=== PATIENT | male | born 1955 | race Asian ===

== ENCOUNTER 2018-03-14 12:24 | Day surgery (SDC) | payer OTHER ==
[~2018-03-14] VITALS: Ht 162.6 cm; Wt 64.1 kg
[~2018-03-14 12:24] MED LIST: ALBU90OI61; ASPI81CH PO; ATOR10; CHOL10002 PO; CIPR500 PO; CLARITIN10 MG; FISH OIL 1,2001 EACH PO; Flovent 110 MCG12 GM; GLYB5 PO; HYDR1TAB94 PO; IBUP600; JARDIANCE10 MG; LISI20 PO; METF500 PO; OMEGA 3 PO; PIOG30; SENN187 PO; SILD50TA; TAMS.4ER PO; TRADJENTA5 MG PO
== END 2018-03-14 15:14 | disposition home or self-care (01) ==
LOC: ORSCSDS 12:24
PROVIDERS: Internal Medicine Gastroenterology
PROC: 0DBM8ZX Excision of Descending Colon, Via Natural or Artificial Opening Endoscopic, Diagnostic (ICD-10-PCS; principal; 2018-03-14 14:30)
DX: Z12.11 Encounter for screening for malignant neoplasm of colon (principal); D12.4 Benign neoplasm of descending colon; K64.8 Other hemorrhoids; K57.30 Diverticulosis of large intestine without perforation or abscess without bleeding; E11.9 Type 2 diabetes mellitus without complications; I10 Essential (primary) hypertension; J45.909 Unspecified asthma, uncomplicated; Z87.891 Personal history of nicotine dependence; Z79.82 Long term (current) use of aspirin; Z79.84 Long term (current) use of oral hypoglycemic drugs; Z79.899 Other long term (current) drug therapy
CPT/HCPCS: 82947; 88305; J7120

== ENCOUNTER → 2021-10-07 | Outpatient (CLI) | payer MEDICARE, OTHER | END | disposition home or self-care (01) | LOC: LAB 17:18 → LAB SHORT 17:18 | DX: R35.0 Frequency of micturition (principal); R31.29 Other microscopic hematuria | CPT/HCPCS: 87086; 88108 ==

== ENCOUNTER 2021-10-09 18:45 | Emergency (ER) | payer MEDICARE, OTHER ==
[~2021-10-09] VITALS: Ht 172.7 cm; Wt 81.7 kg
== END 2021-10-09 20:13 | disposition home or self-care (01) ==
LOC: ER 18:45
DX: S01.01XA Laceration without foreign body of scalp, initial encounter (principal); W18.30XA Fall on same level, unspecified, initial encounter; Z79.899 Other long term (current) drug therapy; Z79.84 Long term (current) use of oral hypoglycemic drugs; Z79.82 Long term (current) use of aspirin; I10 Essential (primary) hypertension; E11.9 Type 2 diabetes mellitus without complications; Z87.891 Personal history of nicotine dependence; Z23 Encounter for immunization
CPT/HCPCS: 12001; 70450; 90471; 90714; 99283-25

== ENCOUNTER 2021-10-16 12:18 | Emergency (ER) | payer MEDICARE, OTHER ==
[~2021-10-16] VITALS: Ht 162.6 cm; Wt 70.8 kg
== END 2021-10-16 12:34 | disposition home or self-care (01) ==
LOC: ER 12:18
DX: S01.81XD Laceration without foreign body of other part of head, subsequent encounter (principal); I10 Essential (primary) hypertension; E11.9 Type 2 diabetes mellitus without complications; Z79.82 Long term (current) use of aspirin; Z79.84 Long term (current) use of oral hypoglycemic drugs; Z79.899 Other long term (current) drug therapy; Z87.891 Personal history of nicotine dependence

== ENCOUNTER → 2021-10-16 | Outpatient (CLI) | payer MEDICARE, OTHER | END | disposition home or self-care (01) | LOC: LAB SHORT 17:36 → LAB 17:36 | DX: R35.0 Frequency of micturition (principal); R31.29 Other microscopic hematuria | CPT/HCPCS: 88108 ==

== ENCOUNTER → 2023-06-29 | Outpatient (CLI) | payer MEDICARE, OTHER | LOC: LAB 08:03 → LAB SHORT 08:03 | DX: L60.2 Onychogryphosis (principal); B35.1 Tinea unguium | CPT/HCPCS: 88305; 88312 ==

== ENCOUNTER 2023-08-06 11:42 | Inpatient (IN) | payer MEDICARE, OTHER ==
[~2023-08-06] VITALS: Ht 162.6 cm; Wt 66.7 kg
[~2023-08-06 11:42] MED LIST changes: +ALBU90OI INH; -ALBU90OI61
[2023-08-06 12:23] LABS: Hematocrit 37.6 % (37.0-53.0); Hemoglobin 12.8 g/dL (13.5-17.5); Mean Corpuscular HGB 28.6 pg (26.0-34.0); Mean Corpuscular Volume 84 fL (80-100); Mean Platelet Volume 8.4 fL (9.1-12.4); Platelet Count 205 K/mm3 (150-400); RDW Standard Deviation 39.9 fL (35.1-46.3); Red Blood Cell Count 4.47 M/mm3 (4.30-5.90); White Blood Cell Count 9.17 K/mm3 (4.00-11.30)
[2023-08-06 12:41] LABS: Albumin, Blood 3.1 g/dL (3.4-5.0); Albumin/Globulin Ratio 0.7 (0.8-1.8); Bilirubin, Total 0.6 mg/dL (0.1-1.0); Bun/Creatinine Ratio 39.8 (12.0-20.0); Calcium, Blood 9.4 mg/dL (8.5-10.1); Creatinine, Blood 0.88 mg/dL (0.60-1.20); Globulin, Blood 4.4 g/dL (2.2-4.0); Potassium, Blood 3.8 mmol/L (3.5-5.5); Total Protein, Blood 7.5 g/dL (6.4-8.2)
[2023-08-06 12:43] LABS: BAND PERCENT MAN 6 % (0-8); BASOPHILS PERCENT MAN 0 % (0-2); EOSINOPHILS PERCENT MAN 0 % (0-6); LYMPHOCYTES ABSOLUTE MAN 1.37 K/mm3 (0.84-5.20); LYMPHOCYTES PERCENT MAN 15 % (21-46); MONOCYTES ABSOLUTE MAN 0.27 K/mm3 (0.16-1.47); MONOCYTES PERCENT MAN 3 % (4-13); NEUTROPHILS ABSOLUTE MAN 7.51 K/mm3 (1.96-9.15); SEG NEUTROPHILS PERCENT MAN 76 % (41-73); TOTAL CELLS COUNTED 100
[2023-08-06 13:07] LABS: Source, Urine Straight Cath
[2023-08-06 13:15] LABS: Appearance, Urine Clear (Clear); Bilirubin, Urine Neg (Neg); Blood, Urine 2+ (Neg); Color, Urine Yellow (P-Yellow); Glucose Qualitative, Urine 4+ (Neg); Ketones, Urine 1+ (Neg); Leukocyte Esterase, Urine Neg (Neg); Nitrite, Urine Neg (Neg); Protein, Urine 2+ (Neg); Urobilinogen, Urine NORM (Normal)
[2023-08-06 13:25] LABS: Bacteria Not Seen /hpf; Squamous Epithelial Cells Not Seen /hpf (Few); White Blood Cells, Urine 0-2 /hpf (0-5)
[2023-08-06 14:40] LABS: Base Excess Venous -7.1 mmol/L; Bicarbonate Venous 18.9 mmol/L (24.0-30.0); PCO2 Venous 37.6 mmHg (38-42); pH Blood Venous 7.32 (7.34-7.37)
[2023-08-06 17:12] VITALS: BP 116/71
[2023-08-06] MEDS ORDERED: JARDIANCE25 MG PO (17:57)
[2023-08-06] MEDS ORDERED: TAMS.4ER PO (17:58)
[2023-08-06] MEDS ORDERED: MONT10T PO (17:59)
[2023-08-06] MEDS ORDERED: PIOG30 PO (18:03)
--- NOTE | 2023-08-06 19:29 | NUR ---
ADMISSION MR MCALLISTER WAS ADMITTED TO THE MEDICAL UNIT FROM ER AT 1700HRS. HE SPEAKS MINIMAL [id number], HIS FAMILY HAVE BEEN TRANSLATING FOR HIM. THE WASTE ELIMINATION PHONE WAS USED TO ATTEMPT TO GET PATIENT PERMISSION FOR FAMILY TO TRANSLATE BUT THERE WERE NO TRANSLATORS AVAILABLE AFTER 30 MINUTES OF SPORTS BOOK SERVER ATTEMPTING TO REACH ANYONE. MR MCALLISTER WAS INCONTINENT OF URINE ON ARRIVAL FROM THE ER. DOES C/O SOME LOWER ABDOMINAL DISCOMFORT. ADMISSION DONE WITH HELP OF FAMILY AND FAMILY TOOK HIS MEDICATIONS HOME. PT LIVES WITH FAMILY AND HAS BEEN GETTING INCREASINGLY WEAK OVER THE PAST 2-3 WEEKS, FREQUENT FALLS AND INCONTINENCE AT HOME. FAMILY SAID THAT HE HAS BEEN ORIENTATED WITH OCCASIONAL CONFUSED COMMENTS. BED LOW, CALL LIGHT IN REACH. BED ALARM ON.
[2023-08-06 20:20] VITALS: BP 109/57
--- NOTE | 2023-08-07 00:57 | NUR ---
PT SPEAKS LIMITED [place]AN[place] IS TAGJESSE[place](MACANESE).BEDSIDE SWALLOW PERFORMED PT ABLE THIN LIQUIDS TO PUDDING CONSISTENCY CRUSHED MEDS W/O DIFFICULTY. LUNGS ARE DIMINISHED AT THE BASES WORSE ON THE RIGHT SIDE. IV IS PATENT AND INFUSING @100ML/HR NS. SKIN IS INTACT. FAMILY AT BEDSIDE TO TRANSLATE. PT IS INCONTINENT. WEARING ATTENDS. CALL LOWE WITHIN REACH,BED LOWERED WILL CONTINUE TO MONITOR.
[2023-08-07 04:38] VITALS: BP 143/64
[2023-08-07 05:38] LABS: BASOPHILS ABSOLUTE AUTO 0.02 K/mm3 (0.00-0.23); BASOPHILS PERCENT AUTO 0 % (0-2); EOSINOPHILS ABSOLUTE AUTO 0.04 K/mm3 (0.00-0.68); EOSINOPHILS PERCENT AUTO 1 % (0-6); Hematocrit 34.5 % (37.0-53.0); Hemoglobin 11.5 g/dL (13.5-17.5); IMMATURE GRAN ABSOLUTE AUTO 0.17 K/mm3 (0.00-0.10); IMMATURE GRAN PERCENT AUTO 2 % (0-1); LYMPHOCYTES ABSOLUTE AUTO 0.72 K/mm3 (0.84-5.20); LYMPHOCYTES PERCENT AUTO 8 % (21-46); MONOCYTES ABSOLUTE AUTO 0.57 K/mm3 (0.16-1.47); MONOCYTES PERCENT AUTO 7 % (4-13); Mean Corpuscular HGB Conc 33.3 g/dL (31.5-36.5); Mean Corpuscular Volume 87 fL (80-100); Mean Platelet Volume 8.7 fL (9.1-12.4); NEUTROPHILS PERCENT AUTO 83 % (41-73); Platelet Count 204 K/mm3 (150-400); RDW Coefficient Variation 13.4 % (11.7-14.2); RDW Standard Deviation 42.5 fL (35.1-46.3); Red Blood Cell Count 3.96 M/mm3 (4.30-5.90); White Blood Cell Count 8.82 K/mm3 (4.00-11.30)
--- NOTE | 2023-08-07 05:41 | NUR ---
SHIFT SUMMARY PATIENT DENIES PAIN AND SHORTNESS OF BREATH. PATIENT MEDICATED X1 FOR NAUSEA. PATIENT A&O X4 WITH SOME FORGETFULNESS. PATIENT SPEAKS TAG[place], BUT DOES UNDERSTAND SOME SYRIAC. MICROWAVE TECHNICIAN PHONE IN ROOM. PATIENT SLEPT ON AND OFF THROUGOUT NIGHT. PATIENT PLEASANT AND COOPERATIVE WITH CARE.
[2023-08-07 06:34] LABS: Magnesium, Blood 1.6 mg/dL (1.6-2.4)
[2023-08-07 06:47] LABS: Albumin, Blood 2.6 g/dL (3.4-5.0); Albumin/Globulin Ratio 0.7 (0.8-1.8); Bilirubin, Total 0.4 mg/dL (0.1-1.0); Bun/Creatinine Ratio 36.6 (12.0-20.0); Calcium, Blood 8.3 mg/dL (8.5-10.1); Creatinine, Blood 0.55 mg/dL (0.60-1.20); Globulin, Blood 3.8 g/dL (2.2-4.0); Potassium, Blood 3.2 mmol/L (3.5-5.5); Total Protein, Blood 6.4 g/dL (6.4-8.2)
[2023-08-07 07:45] VITALS: BP 129/61
[2023-08-07 12:41] LABS: Free Thyroxine 1.82 ng/dL (0.70-1.60)
[2023-08-07 12:42] LABS: Triiodothyronine, Free 1.14 pg/mL (2.18-3.98)
[2023-08-07 14:52] VITALS: BP 138/77
--- NOTE | 2023-08-07 18:45 | NUR ---
SHIFT SUMMARY MR MCALLISTER SPEAKS SOME ALBANIAN. FAMILY INTERPRETING WHEN THEY ARE HERE AND HE DOES UNDERSTAND SOME CONVERSATION. NO FILLINO ENGINEERING RECRUITER AVALABLE ON THE OFFICIAL FRAUD PREVENTION ANALYST PHONE, CHARGE NURSE NOTIFIED. MR BELTRAN C/O LOWER ABDOMINAL DISCOMFORT. HE HAD EARLIER HAD 1-2 LARGE INCONTINENT VOIDS BUT BLADDER SCAN WAS 861. STRAIGHT CATH DONE WITH GOOD UOP, HE SAID HE HAS NOT HAD ABDOMINAL DISCOMFORT SINCE. ON [facility] SOFT DIET, EATING ABOUT 20% OF HIS MEAL. IV POTASSIUM INFUSING VERY SLOWLY IT IS TENDER. SUPPORTIVE FAMILY HERE TODAY. PT WORKED WITH SPEACH THERAPY AND PHYSICAL THERAPY, BUT WAS TOO WEAK TO GET OUT OF BED TODAY. BED LOW, CALL LIGHT IN REACH, BED ALARM ON.
[2023-08-07 19:45] VITALS: BP 150/75
--- NOTE | 2023-08-08 01:45 | NUR ---
PT A&OX3 PROCEDURE EXPLAINED. INCONTINENT OF URINE C/O STOMACH DISCOMFORT MILD DISTENTION TTENDER TO PALPATION, BLADDER SCAN SHOWS 761ML . STRIAGHT CATH PERFORMED PER ORDER SLIGHT RESISTANCE SWITH TO COUDE CATHETER STILL RESISTANCE DRAINED 150 PT C/O OF PAIN URINE STOPPED CATHETER REMOVED APPROXIMATELY 250ML REMOVED.
[2023-08-08 04:10] VITALS: BP 146/75
[2023-08-08 04:59] LABS: Hematocrit 35.2 % (37.0-53.0); Hemoglobin 11.5 g/dL (13.5-17.5); Mean Corpuscular HGB 28.9 pg (26.0-34.0); Mean Corpuscular HGB Conc 32.7 g/dL (31.5-36.5); Mean Corpuscular Volume 88 fL (80-100); Mean Platelet Volume 8.9 fL (9.1-12.4); Platelet Count 236 K/mm3 (150-400); RDW Coefficient Variation 13.7 % (11.7-14.2); RDW Standard Deviation 44.6 fL (35.1-46.3); Red Blood Cell Count 3.98 M/mm3 (4.30-5.90); White Blood Cell Count 10.33 K/mm3 (4.00-11.30)
--- NOTE | 2023-08-08 05:26 | NUR ---
SHIFT SUMMARY PATIENT DENIES NAUSEA AND SHORTNESS OF BREATH. PATIENT REPORTED LOWER ABDOMINAL PAIN AROUND 0030, BLADDER SCAN DONE, SHOWED 800MLS. STRAIGHT CATH DONE. BED LINEN CHANGED THROUGHOUT SHIFT DUE TO INCONTINENT URINE. PATIENT REPORTED LOWER ABDOMINAL PAIN AGAIN AROUND 0330, BLADDER SCAN SHOWED 500MLS. PER ORDER, JO PLACED DUE TO STRAIGHT CATH X2. IMMEDIATE OUTPUT ONCE JO WAS PLACED WAS 800MLS. PATIENT REPORTED LOWER ABDOMINAL PAIN GONE. PATIENT SLEPT ON AND OFF THROUGHOUT SHIFT. PATIENT IS A&O X4, PLEASANT AND COOPERATIVE WITH CARE.
[2023-08-08 05:37] LABS: BAND PERCENT MAN 7 % (0-8); BASOPHILS PERCENT MAN 0 % (0-2); EOSINOPHILS PERCENT MAN 3 % (0-6); LYMPHOCYTES ABSOLUTE MAN 1.34 K/mm3 (0.84-5.20); LYMPHOCYTES PERCENT MAN 13 % (21-46); MONOCYTES ABSOLUTE MAN 0.82 K/mm3 (0.16-1.47); MONOCYTES PERCENT MAN 8 % (4-13); MYELOCYTE PERCENT MAN 3 % (0-0); NEUTROPHILS ABSOLUTE MAN 7.54 K/mm3 (1.96-9.15); SEG NEUTROPHILS PERCENT MAN 66 % (41-73); TOTAL CELLS COUNTED 100
[2023-08-08 05:38] LABS: Albumin, Blood 2.5 g/dL (3.4-5.0); Anion Gap 11 mmol/L (6-16); Blood Urea Nitrogen 15 mg/dL (8-24); Bun/Creatinine Ratio 27.6 (12.0-20.0); CO2, Blood 19 mmol/L (21-32); Calcium, Blood 8.5 mg/dL (8.5-10.1); Chloride, Blood 105 mmol/L (98-108); Creatinine, Blood 0.54 mg/dL (0.60-1.20); Glomerular Filtration Rate 107 (60-); Glucose, Blood 164 mg/dL (70-99); Phosphorus, Blood 3.1 mg/dL (2.5-4.9); Potassium, Blood 3.8 mmol/L (3.5-5.5); Sodium, Blood 135 mmol/L (136-145)
[2023-08-08 08:18] VITALS: BP 128/68
[2023-08-08 15:10] VITALS: BP 132/83
--- NOTE | 2023-08-08 16:18 | NUR ---
Spoke to pt's daughter in law Conner today, we are planning to speak to pt regarding his code status of Full Code. The pt's primary language is not Wallisian, so I will wait until Conner is available to have the discussion.
--- NOTE | 2023-08-08 16:50 | NUR ---
SHIFT ASSESSMENT MR MCALLISTER HAS DENIED ANY ABDOMINAL PAIN OR OTHER PAIN TODAY. JO CATHETER IN PLACE AND DRAINING CLEAR YELLOW URINE. SUPPORTIVE FAMLILY TO BEDSIDE TODAY. S/B DR DORANTES AND PLAN TO INVESTIGATE S.N.F. PLACEMENT WITH LEVEE SUPERINTENDENT TOMORROW. THIS WAS DISCUSSED WITH PT'S SON WHO IS IN AGREEMENT. REPOSITIONED IN BED AND SAT UP ON THE SIDE OF THE BED PERIODICALLY BUT PT HAS BEEN TOO WEAK TO STAND. BED LOW, CALL LIGHT IN REACH, BED ALARM ON.
--- NOTE | 2023-08-08 16:53 | NUR ---
Met with pt and daughter in law Conner. She was able to translate, and we discussed Code Status. The pt indicated he does want to change his Code Status to DNR but wants to wait to address the PEG tube until after he has swallow study tomorrow. Discussed with Dr. Rao, and he gave order for Code Status change to DNR.
[2023-08-08 19:03] VITALS: BP 143/71
--- NOTE | 2023-08-09 02:43 | NUR ---
SHIFT SUMMERY. PT SPEAKS VERY LITTLE BRITISH. BUT INDICATED HE NEEDED TO COUGH UP SOME MUCUS AND WANTED AND RT TX. RT CALLED AND STATED PT HAD COUGHED UP A LG AMOUNT OF MUCUS. PT PULLED OUT IV TRYED TO EXSPLANE TO PT HE NEEDED TO LEAVE IT IN TILL DC INCASE HE NEEDED MEDICATION. NEW IV PLACED. PT RESTING IN BED. BED ALARM BUFFING MACHINE TENDER LIGHT IN REACH.
[2023-08-09 03:12] VITALS: BP 141/72
[2023-08-09 04:51] LABS: Hematocrit 34.5 % (37.0-53.0); Hemoglobin 11.1 g/dL (13.5-17.5); Mean Corpuscular HGB Conc 32.2 g/dL (31.5-36.5); Mean Corpuscular Volume 87 fL (80-100); Mean Platelet Volume 8.3 fL (9.1-12.4); Platelet Count 233 K/mm3 (150-400); RDW Coefficient Variation 13.5 % (11.7-14.2); RDW Standard Deviation 42.8 fL (35.1-46.3); Red Blood Cell Count 3.96 M/mm3 (4.30-5.90)
[2023-08-09 05:10] LABS: Albumin, Blood 2.5 g/dL (3.4-5.0); Anion Gap 5 mmol/L (6-16); Blood Urea Nitrogen 12 mg/dL (8-24); Bun/Creatinine Ratio 27.7 (12.0-20.0); CO2, Blood 25 mmol/L (21-32); Calcium, Blood 8.7 mg/dL (8.5-10.1); Chloride, Blood 104 mmol/L (98-108); Creatinine, Blood 0.43 mg/dL (0.60-1.20); Glomerular Filtration Rate 115 (60-); Glucose, Blood 123 mg/dL (70-99); Phosphorus, Blood 3.5 mg/dL (2.5-4.9); Potassium, Blood 3.7 mmol/L (3.5-5.5); Sodium, Blood 134 mmol/L (136-145)
[2023-08-09 05:54] LABS: BAND PERCENT MAN 1 % (0-8); BASOPHILS PERCENT MAN 0 % (0-2); EOSINOPHILS PERCENT MAN 1 % (0-6); LYMPHOCYTES ABSOLUTE MAN 1.24 K/mm3 (0.84-5.20); LYMPHOCYTES PERCENT MAN 12 % (21-46); METAMYELOCYTE ABSOLUTE MAN 0.31 K/mm3 (0.00-0.00); METAMYELOCYTE PERCENT MAN 3 % (0-0); MONOCYTES ABSOLUTE MAN 1.14 K/mm3 (0.16-1.47); MONOCYTES PERCENT MAN 11 % (4-13); MYELOCYTE PERCENT MAN 2 % (0-0); NEUTROPHILS ABSOLUTE MAN 7.38 K/mm3 (1.96-9.15); SEG NEUTROPHILS PERCENT MAN 70 % (41-73); TOTAL CELLS COUNTED 100
[2023-08-09 07:37] VITALS: BP 113/70
--- NOTE | 2023-08-09 09:00 | NUR ---
pt laying in bed, pleasant and coopertive with care, follows commands well, denies pain at this time, lungs are clear t/o, resp even and unlabored, no cough noted, on r/a, hrr, no edema noted, ppp+1, cap refill <3sec, vs stable, afebrile, iv site to rac is clear and patent, btx4, abd flat soft nontender, voids via chinchilla at this time, briefs in place, skin c/w/d, layton rice, call light in reach.
[2023-08-09 16:51] VITALS: BP 131/73
--- NOTE | 2023-08-09 17:16 | NUR ---
Pt passed barrium swallow today, so his diet was advanced. He is admittedly very happy about this, and will likely begin the process of discharging soon. Code status was changed to DNR yesterday by pt's choice, but he wasn't ready to address tube feeding at this time.
--- NOTE | 2023-08-09 18:07 | NUR ---
pt had his barium swallow, new orders were placed for diet, family in room, sits on side of bed for meals, no complaints or needs at this time, call light in reach.
[2023-08-09 20:11] VITALS: BP 145/75
[2023-08-10 03:15] VITALS: BP 151/95
--- NOTE | 2023-08-10 04:31 | NUR ---
SHIFT SUMMARY AFBBY IS ALERT AT THE START OF SHIFT, ORIENTATION DIFFICULT TO ASSESS DUE TO LANGUAGE BARRIER, BUT HE UNDERSTANDS AND FOLLOWS SIMPLE INSTRUCTIONS, AND CAN MAKE HIS NEEDS KNOWN WITH LIMITED TAMAZIGHT AND BODY LANGUAGE. PT IS VERY PLEASANT AND COOPERATIVE. PT HAD NO ACUTE CHANGES IN CONDITION THIS SHIFT, AND NO MAJOR COMPLAINTS. PT CURRENTLY SLEEPING IN BED AT A LOW POSITION WITH CALL LIGHT IN REACH.
[2023-08-10 15:53] VITALS: BP 123/60
--- NOTE | 2023-08-10 18:36 | NUR ---
SHIFT SUMMARY: PT A/O X 4, 2 MAX ASSIST WITH WALKER AND GB. PT DID NOT GET OOB TODAY. PT ON RA, PLEASANT AND COOPERATIVE . PT HAD NO COMPLAINTS TODAY. HAS GOOD APPETITE. CATHETER PATENT AND DRAINING CLEAR YELLOW URINE. PT HAD BM TODAY. ABLE TO MAKE NEEDS KNOWN. FAMILY IN ROOM AT THIS TIME.
[2023-08-10 19:27] VITALS: BP 136/74
[2023-08-11 02:40] VITALS: BP 125/68
--- NOTE | 2023-08-11 04:21 | NUR ---
SHIFT SUMMARY FABBY WAS ALERT AND SEEMED RELATIVELY ORIENTED BEST I COULD TELL, ORIENTATION DIFFICULT TO ASSESS D/T LANGUAGE BARRIER. PT WANTED HIS NIGHT MEDS EARLY POSSIBLE AND THEN TO BE LEFT ALONE TO SLEEP MUCH POSSIBLE. NO ACUTE EVENTS TONIGHT, NO SIGINIFICANT COMPLAINTS. PT IS RESTING IN BED AT THIS TIME WITH CALL LIGHT IN REACH
[2023-08-11 07:40] VITALS: BP 129/71
--- NOTE | 2023-08-11 14:35 | NUR ---
Case Conference Note Daughter in law Rigo requesting family meeting with Dr Boyd and Palliative Care to go over results of MRI. Called and spoke with Dr Boyd. Plan for meeting between [id number]. Palliative Care will F/U for family meeting
[2023-08-11 14:50] VITALS: BP 128/70
--- NOTE | 2023-08-11 16:08 | NUR ---
Joint visit with Dr Boyd and family. Dr Boyd reviews plan of care and discusses results of MRI. Next steps discussed including reaching out to Pulmonology. Family expresses appreciation and reports no new concerns. Palliative Care will remain available
--- NOTE | 2023-08-11 17:19 | NUR ---
"Spiritual Care | Pt./Family/Nurse Request Pt. is sitting up at the edge of his bed and welcomes my visit. Pts. nurse relayed the families request that he be seen by a [employer] arcgis developer. Pts. son is present during the visit. Kaur is Pts. second language so this arcgis developer sought to listen very closely. Facilitated a life review with Pts. son filling in the details regarding medical condition. Pt. displayed evidence of some confusion, but requested that I pray. Prayed with Pt. Pt. verbalized gratitude for the spiritual care visit and welcomed this arcgis developer to return."
--- NOTE | 2023-08-11 18:00 | NUR ---
SHIFT SUMMARY PT ALERT THIS SHIFT, CALLS AND MAKES HIS NEEDS KNOWN. FAMILY AT THE BS FOR TRANSLATION TODAY. THE FAMILY MET WITH PALLIATIVE AND DR. KERNS TO DISCUSS TREATMENT POST MRI RESULTS. JO IS PATENT AND DRAINING. NO COMPLAINTS FROM THE PT THIS SHIFT. CALL LIGHT WITHIN REACH, BED IN THE LOWEST POSITION. WILL REPORT TO ONCOMING NURSE.
[2023-08-11 21:07] VITALS: BP 124/71
--- NOTE | 2023-08-12 04:10 | NUR ---
SHIFT SUMMARY FABBY WAS ALERT THIS SHIFT, HIS LEVEL OF ORIENTATION REMAINS UNCHANGED FROM PREVIOUS SHIFTS. PT WAS AWAKE MOST OF THE NIGHT. PT'S IV WAS INFILTRATED UPON ASSESSMENT. IV WAS D/C'D AND AN ORDER FOR "NO IV ACCESS NEEDED" WAS PUT IN THE PT ONLY HAS ONE PRN IV MED FOR ZOFRAN IN THE EMAR. NO OTHER EVENTS THIS SHIFT. PT IS CURRENTLY IN BED ON HIS PHONE WITH HIS CALL LIGHT IN REACH.
[2023-08-12 04:18] VITALS: BP 151/70
[2023-08-12 05:07] LABS: Hematocrit 34.9 % (37.0-53.0); Hemoglobin 11.2 g/dL (13.5-17.5); Mean Corpuscular HGB 28.3 pg (26.0-34.0); Mean Corpuscular HGB Conc 32.1 g/dL (31.5-36.5); Mean Corpuscular Volume 88 fL (80-100); Mean Platelet Volume 8.7 fL (9.1-12.4); NRBC ABSOLUTE 0.02 K/mm3 (0.00-0.02); NRBC Auto 0.2 /100 WBC (0.0-0.2); Platelet Count 287 K/mm3 (150-400); RDW Coefficient Variation 13.4 % (11.7-14.2); RDW Standard Deviation 43.1 fL (35.1-46.3); Red Blood Cell Count 3.96 M/mm3 (4.30-5.90); White Blood Cell Count 12.38 K/mm3 (4.00-11.30)
[2023-08-12 05:42] LABS: Albumin, Blood 2.7 g/dL (3.4-5.0); Albumin/Globulin Ratio 0.7 (0.8-1.8); Bilirubin, Total 0.3 mg/dL (0.1-1.0); Bun/Creatinine Ratio 23.5 (12.0-20.0); Calcium, Blood 8.7 mg/dL (8.5-10.1); Creatinine, Blood 0.51 mg/dL (0.60-1.20); Globulin, Blood 3.7 g/dL (2.2-4.0); Potassium, Blood 3.8 mmol/L (3.5-5.5); Total Protein, Blood 6.4 g/dL (6.4-8.2)
[2023-08-12 06:19] LABS: BAND PERCENT MAN 5 % (0-8); BASOPHILS PERCENT MAN 0 % (0-2); EOSINOPHILS ABSOLUTE MAN 0.49 K/mm3 (0.00-0.68); EOSINOPHILS PERCENT MAN 4 % (0-6); LYMPHOCYTES ABSOLUTE MAN 1.85 K/mm3 (0.84-5.20); LYMPHOCYTES PERCENT MAN 15 % (21-46); METAMYELOCYTE ABSOLUTE MAN 0.12 K/mm3 (0.00-0.00); METAMYELOCYTE PERCENT MAN 1 % (0-0); MONOCYTES ABSOLUTE MAN 0.86 K/mm3 (0.16-1.47); MONOCYTES PERCENT MAN 7 % (4-13); MYELOCYTE ABSOLUTE MAN 0.99 K/mm3 (0.00-0.00); MYELOCYTE PERCENT MAN 8 % (0-0); NEUTROPHILS ABSOLUTE MAN 8.04 K/mm3 (1.96-9.15); SEG NEUTROPHILS PERCENT MAN 60 % (41-73); TOTAL CELLS COUNTED 100
[2023-08-12 07:31] VITALS: BP 159/73
--- NOTE | 2023-08-12 14:00 | NUR ---
Spiritual Care Visit. Pt. is awake in bed watching the news when he welcomes my visit. Pt. is pleasant. With the TV muted this frame straightener could understand the Pt. more completely. Pt. displays evidence of trust. Pts. awareness and engagement are clearer today than my previous visit. Facilitated some more life review. After a period of engagement, this frame straightener prayed with the Pt. Pt. verbalized gratitude for the spiritual care visit and welcomed this frame straightener to return.
--- NOTE | 2023-08-12 19:21 | NUR ---
SHIFT SUMMARY MR MCALLISTER HAD PIV PLACED TODAY FOR ATIVAN IV AND FOR MRI. HE TOLERATED MRI PROCEDURES. JO CATHETER IN PLACE FOR ACUTE RETENTION. PT HAS HAD NO C/O PAIN TODAY. PER O.T. HE STOOD WITH A LOT OF ASSISTANCE TODAY, BUT OTHERWISE HAS BEEN ABLE TO SIT UP ON THE EDGE OF THE BED WITH 1-2 PERSON ASSISTANCE AND NEEDING ASSISTANCE TO MOVE UP IN BED. INCONTINENT OF STOOL. FAMILY AT BEDSIDE. BED LOW, CALL LIGHT IN REACH, BED ALARM ON.
[2023-08-12 19:22] VITALS: BP 122/65
[2023-08-13 03:58] VITALS: BP 110/68
--- NOTE | 2023-08-13 06:36 | NUR ---
NOC SHIFT SUMMARY: RESTLESS LAST NIGHT. JO IN PLACE. PLAN IS FOR SNF REHAB. PATIENT SITS ON THE SIDE OF THE BED AT TIMES. SPEAK FILLIPINO. ABLE TO UNDERSTAND SOME KINYARWANDA.
[2023-08-13 07:31] VITALS: BP 128/81
[2023-08-13 11:56] LABS: SARS-Cov-2 (COVID-19) PCR, MMC NEGATIVE (NEGATIVE)
[2023-08-13] MEDS ORDERED: AMOCLA500 PO (12:14)
[2023-08-13] MEDS ORDERED: SEMGLEE (Y100 UNIT/2 SC (12:15)
[2023-08-13] MEDS ORDERED: VISBIOME 112.51 EACH PO (12:16)
[2023-08-13] MEDS ORDERED: SENN187 PO (12:16)
[2023-08-13] MEDS ORDERED: MIRALAX11910 PO (12:16)
--- NOTE | 2023-08-13 16:04 | NUR ---
REPORT CALLED TO RECEIVING RN AT [facility]. PT HAS A STEAMER TENDER TIME OF 1630.
--- NOTE | 2023-08-13 17:25 | NUR ---
1700: BLADDER SCANNED PT WITH RESULTING VOL IN BLADDER <100CCS. PT STATES HE DOES NOT FEEL THE NEED TO URINATE. PT'S SON IN THE ROOM. PIV DC'D WITH CATH TIP INTACT, NO REDNESS OR SWELLING NOTED. PT'S SON BROUGHT IN CLOTHES FOR PT TO TRANSFER TO [facility] [place]. PT TO [facility] VIA MED TRANSPORT VIA W/C WITH ALL PERSONAL BELONGINGS GIVEN TO SON. DC PKT GIVEN TO TRANSPORT PERSONNEL.
== END 2023-08-13 17:18 | DRG 640 ==
LOC: ER 11:42 → MEDS 11:43 → ENPENDDIS 08-13 10:16 → MEDS 08-13 17:18
PROVIDERS: Emergency Medicine; Family Medicine; Internal Medicine; ADMIT Student in an Organized Health Care Education/Training Program
DX: E87.1 Hypo-osmolality and hyponatremia (principal); G92.8 Other toxic encephalopathy; J18.9 Pneumonia, unspecified organism; C79.31 Secondary malignant neoplasm of brain; E51.9 Thiamine deficiency, unspecified; I95.9 Hypotension, unspecified; I10 Essential (primary) hypertension; J44.9 Chronic obstructive pulmonary disease, unspecified; E87.6 Hypokalemia; E11.65 Type 2 diabetes mellitus with hyperglycemia; R13.12 Dysphagia, oropharyngeal phase; E05.90 Thyrotoxicosis, unspecified without thyrotoxic crisis or storm; R91.8 Other nonspecific abnormal finding of lung field; F10.21 Alcohol dependence, in remission; R54 Age-related physical debility; Z87.891 Personal history of nicotine dependence; N40.0 Benign prostatic hyperplasia without lower urinary tract symptoms; Z90.79 Acquired absence of other genital organ(s); Z79.82 Long term (current) use of aspirin; Z79.811 Long term (current) use of aromatase inhibitors; Z79.899 Other long term (current) drug therapy
CPT/HCPCS: 36415; 51701; 70470; 70553; 71045; 72156; 72157; 72158; 74177; 74230; 80053; 80069; 81001; 82530; 82803; 82947; 83520; 83605; 83735; 83930; 83935; 84439; 84443; 84481; 85025; 86592; 87040; 92526; 92610; 92611; 93005; 93010; 94640; 94664; 94760; 96361; 96361-59; 96365-59; 96366-59; 96368; 96372; 96375; 96376; 97110; 97162; 97530; 99285-25; A9270; A9579; G0378; J0456; J0696; J1650; J1815; J2060; J2405; J3411; J3475; J3480; J7030; J7050; Q9967; U0002